=== PATIENT | female | born 2000 | race African-American/Black ===

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

== ENCOUNTER 2019-03-31 07:03 | Emergency (ER) | payer OTHER ==
[2019-03-31 07:12] VITALS: BMI 21.9
[2019-03-31] MEDS ORDERED: SODIUM CHLORIDE 1,000 ML IV STA (07:37)
[2019-03-31] MEDS ORDERED: ACETAMINOPHEN 1000 MG/100 ML VIAL (NON FORMULARY) IVPB ONE (07:38)
[2019-03-31] MEDS ORDERED: ONDANSETRON 4 MG/2 ML VIAL IVPB ONE (07:38)
[2019-03-31] MEDS ORDERED: ACETAMINOPHEN INJECTION 100 ML IVPB ONE (07:40)
[2019-03-31] MEDS ORDERED: ONDANSETRON 4 MG/2 ML VIAL ONE (07:40)
--- NOTE | 2019-03-31 07:46 | PDOC ---
History of Present Illness - General Chief Complaint: Pain, Acute Stated Complaint: VOMITING,HEADACHE Time Seen by Provider: 03/31/19 07:06 - History of Present Illness Initial Comments: 03/31/19 07:38 Chief complaint: Nausea vomiting diarrhea and headache since yesterday. HPI: 3-4 episodes of vomiting consisting of undigested food, watery diarrhea without blood, since yesterday afternoon. This is been accompanied by headache which is described as a throbbing, generalized, nonlocalized, and accompanied by decreased oral intake. Review of systems: Denies fever/chills, URI symptoms, sore throat, cough, chest pain, shortness of breath, urinary tract symptoms, vaginal bleeding or discharge. Last menses March 11, regular, denies possibility of . Admits intermittent crampy mid abdominal pain with diarrhea, but no pain now. Remainder of systems reviewed and noncontributory Past medical history: Headaches that occur 3-4 times a month, lasting several days, interfere with activities, require taking a "pill" but she does not know the name of the medication. She has had an MRI, but no neurological evaluation. Otherwise negative. Social history: Student at [employer], other students with similar illness, admits stress from classes but managing well. Denies tobacco alcohol or nonprescription drugs Family history: Reviewed with patient and her mother, negative for early coronary artery disease, metabolic diseases including diabetes, neurologic diseases including aneurysms, or cancer. Physical exam: Alert and oriented x3, well-developed well-nourished, no acute distress, cheerful and cooperative, but complaining of mild headache Temperature 100.1, pulse 108 regular, remainder vital signs normal PERRLA, fundi benign with sharp disc margins and good central venous pulsations , conjunctivae clear, ENT clear. Visual larkin intact to confrontation. EOMs full without diplopia Neck supple without bruit mass or nodes Lungs clear, full breath sounds bilaterally CV regular without murmur rub or gallop pulses full and symmetric no JVD or edema no bruits Abdomen nondistended. Bowel sounds normal. Soft without mass organomegaly. Mild tenderness to deep palpation mid abdomen, without definite localization. No guarding or rebound. No other peritoneal signs Extremities no CCE Skin clear, no rash, adequate turgor and wet mucous membranes Neurological C2 to 12 intact. Strength full and symmetric. No focal sensorimotor deficits. Cerebellar intact. Gait stable and unimpaired Impression: Present illness appears to be most consistent with a viral gastroenteritis, acquired in a school setting. This is superimposed on chronic headaches, which are suspicious for migraines. MRI was performed but no neurological evaluation yet. This would be beneficial, considering the frequency of the headaches and medications available for prophylaxis Plan: CBC, chemistries, IV fluids, symptomatic treatment with Zofran and acetaminophen. Further evaluation depending on results and response to therapy. Past History - Past Medical History Allergies/Adverse Reactions: Allergies Allergy/AdvReac Type Severity Reaction Status Date / Time almond oil Allergy Verified 03/31/19 07:05 No Known Drug Allergies Allergy Verified 03/31/19 07:05 shrimp Allergy Verified 03/31/19 07:05 Home Medications: Ambulatory Orders Divalproex [Depakote -] 250 mg PO DAILY 03/31/19 Ibuprofen 800 mg PO TID PRN #15 tablet 03/31/19 Ondansetron [Zofran *Odt*] 4 mg SL TID PRN #10 od.tablet 03/31/19 COPD: No Other medical history: MIGRAINES - Immunization History Immunization Up to Date: Yes - Psycho Social/Smoking Cessation Hx Smoking History: Never smoked Have you smoked in the past 12 months: No Information on smoking cessation initiated: No Hx Alcohol Use: No Drug/Substance Use Hx: No *Physical Exam - Vital Signs Last Vital Signs Temp Pulse Resp BP Pulse Ox 100.1 F H 108 H 16 117/69 98 03/31/19 07:08 03/31/19 07:08 03/31/19 07:08 03/31/19 07:08 03/31/19 07:08 ED Treatment Course - LABORATORY CBC & Chemistry Diagram: 03/31/19 07:45 03/31/19 07:45 - ADDITIONAL ORDERS Additional order review: Laboratory Results 03/31/19 07:20 Urine HCG, Qual Negative Medical Decision Making - Medical Decision Making 03/31/19 08:43 CBC, chemistries, and urinalysis showed no significant abnormalities. White blood count is normal with a normal differential Improved with IV hydration, antiemetics, analgesics, and Pepcid. Headache resolved. No further vomiting or diarrhea. Discharge - Discharge Information Problems reviewed: Yes Clinical Impression/Diagnosis: Viral gastroenteritis Condition: Improved Disposition: HOME - Admission No - Additional Discharge Information Prescriptions: Ibuprofen 800 mg PO TID PRN #15 tablet PRN Reason: Headache Ondansetron [Zofran *Odt*] 4 mg SL TID PRN #10 od.tablet PRN Reason: Nausea And/Or Vomiting - Follow up/Referral Referrals: Reddy Nickerson DO [Staff Physician] - - Patient Discharge Instructions Patient Printed Discharge Instructions: DI for Viral Gastroenteritis -- Adult Additional Instructions: If headaches continue to occur frequently, it is recommended that you see a neurologist for further evaluation. There are medications that can prevent frequent headaches. - Post Discharge Activity Work/Back to School Note: Back to School
[2019-03-31 08:05] LABS: HEMATOCRIT 38.5 % (32.4-45.2); HEMOGLOBIN 12.5 GM/dl (10.7-15.3); MCH 25.8 pg (25.7-33.7); MCHC 32.5 g/dl (32.0-36.0); MEAN CELL VOLUME 79.3 fl (80-96); PLATELET COUNT 163 K/MM3 (134-434); RBC 4.85 M/mm3 (3.60-5.2); RDW 23.6 % (11.6-15.6); WHITE BLOOD COUNT 8.2 K/mm3 (4.0-10.8)
[2019-03-31 08:09] LABS: ADD RBC MORPHOLOGY YES
[2019-03-31 08:10] LABS: ALBUMIN 3.7 g/dl (3.4-5.0); BILIRUBIN,TOTAL 0.9 mg/dl (0.2-1); CALCIUM 8.9 mg/dl (8.5-10); CREATININE 0.8 mg/dl (0.55-1.3); POTASSIUM 3.8 mmol/L (3.5-5.1); TOT PROT 7.1 g/dl (6.4-8.2)
[2019-03-31 08:17] LABS: EPITHELIAL CELLS FEW /hpf
[2019-03-31] MEDS ORDERED: FAMOTIDINE 20 MG/50 ML IVPB 20 MG/50 ML MG IVPB ONE ×2 (08:29→08:31)
[2019-03-31 08:52] VITALS: BP 103/51; PULSE 79; TEMP 98.8
[2019-03-31 09:39] LABS: ANISOCYTOSIS 2+
[2019-03-31 09:40] LABS: PLATELET ESTIMATE ADEQUATE
== END 2019-03-31 09:49 | disposition home or self-care (01) ==
LOC: FER 07:03
PROC: 3E033NZ Introduction of Analgesics, Hypnotics, Sedatives into Peripheral Vein, Percutaneous Approach (ICD-10-PCS; principal; 2019-03-31)
PROC: 3E033GC Introduction of Other Therapeutic Substance into Peripheral Vein, Percutaneous Approach (ICD-10-PCS; 2019-03-31)
PROC: 3E0337Z Introduction of Electrolytic and Water Balance Substance into Peripheral Vein, Percutaneous Approach (ICD-10-PCS; 2019-03-31)
DX: K52.9 Noninfective gastroenteritis and colitis, unspecified (principal); Z91.018 Allergy to other foods; Z91.013 Allergy to seafood
CPT/HCPCS: 36415; 80053; 81003; 81015; 84703; 85025; 99284-25; J0131; J7030